=== PATIENT | female | born 1970 | race Caucasian/White ===

== ENCOUNTER 2017-12-17 11:56 | Emergency (ER) | payer MEDICARE, MEDICAID ==
[~2017-12-17] VITALS: Ht 165.1 cm; Wt 99.8 kg
[~2017-12-17 11:56] MED LIST: ABILIFY20 MG PO; AUGMENTIN 500 M1 TAB PO; BENADRYL50 MG PO; CIPRO500 MG PO; CLEOCIN150 MG PO; CLINDAMYCIN HC300 MG PO; CLINDAMYCIN300 MG PO; DIFLUCAN150 MG PO; FLAGYL500 MG PO; GABAPENTIN400 MG PO; HYDROCODONE BIT1 T11 PO; IBU800 MG PO; KEFLEX500 MG PO; LEXAPRO10 MG PO; LEXAPRO20 MG PO; MEDROL DOSEPAK4 MG PO; Motrin,Rufen800 MG PO; NAPROSYN500 MG PO; NEURONTIN400 MG PO; NKHM; NORCO 325 MG-101 TAB PO; NORCO 325 MG-51 TAB PO; PERCOCET 325 MG1 TA2 PO; PERCOCET 325 MG1 TA5 PO; PERCOCET 325 MG1 TA7 PO; PROTONIX40 MG PO; ROBAXIN500 MG PO; ULTRAM50 MG PO; VICO10300 PO; VICODIN 5/500 505 MG PO; VISTARIL50 MG PO; WELLBUTRIN SR150 MG PO; XANAX XR2 MG PO; XANAX0.25 MG; ZOFRAN ODT4 MG SL
[2017-12-17 12:00] VITALS: BP 130/79
[2017-12-17 12:17] LABS: BILIRUBIN NEGATIVE (NEGATIVE); BLOOD TRACE-INTACT (NEGATIVE); CLARITY SL CLOUDY (CLEAR); COLOR YELLOW (YELLOW); GLUCOSE NEGATIVE (NEGATIVE); KETONE NEGATIVE (NEGATIVE); LEUKO ESTERASE NEGATIVE (NEGATIVE); NITRITE NEGATIVE (NEGATIVE); PH 5.5 (5.0-9.0); SPECIFIC GRAVITY <= 1.005 (1.005-1.030); UROBILINOGEN 0.2 E.U./dl (0.2-1.0)
[2017-12-17 12:27] LABS: BACTERIA TRACE
[2017-12-17 12:30] LABS: BASO % 0.3 % (0.0-1.0); EOS # 0.1 10*3/uL (0.0-0.4); EOS % 0.7 % (1.0-4.0); HEMATOCRIT 42.2 % (37.0-47.0); HEMOGLOBIN 14.6 g/dl (12.0-16.0); LYMPH # 2.2 10*3/uL (1.3-4.4); MEAN CELL VOLUME 86.7 fl (81.0-99.0); MEAN CORPUSCULAR HGB CONC 34.6 g/dl (33.0-37.0); MEAN PLATELET VOLUME 9.5 fl (9.6-12.3); MONO # 0.6 10*3/uL (0.1-1.0); NEUT # 9.4 10*3/uL (2.3-7.9); NEUT % 75.7 % (47.0-73.0); PLATELET COUNT AUTOMATED 283 10*3/uL (130-400); RED BLOOD COUNT 4.87 10*6/uL (4.10-5.10); WHITE BLOOD COUNT 12.4 10*3/uL (4.8-10.8)
[2017-12-17 12:37] LABS: ACT PARTIAL THROMBO TIME 23.2 SECONDS (20.8-31.5)
[2017-12-17 12:44] LABS: ALBUMIN 3.7 gm/dl (3.1-4.5); ALKALINE PHOSPHATASE 82 U/L (45-117); BUN 6 mg/dl (7-24); CHLORIDE 107 mmol/L (98-107); CREATININE 0.73 mg/dL (0.55-1.02); LIPASE 185 U/L (73-393); POTASSIUM 3.7 mmol/L (3.5-5.1); SGOT/AST 10 IU/L (3-35); SGPT/ALT 17 U/L (12-78); SODIUM 137 mmol/L (136-145); TOTAL PROTEIN 7.9 gm/dL (6.4-8.2)
== END 2017-12-17 13:31 | disposition home or self-care (01) ==
LOC: ED 11:56
PROVIDERS: Emergency Medicine
DX: K62.5 Hemorrhage of anus and rectum (principal); R19.7 Diarrhea, unspecified; A04.72 Enterocolitis due to Clostridium difficile, not specified as recurrent; R10.30 Lower abdominal pain, unspecified; F17.200 Nicotine dependence, unspecified, uncomplicated; G89.29 Other chronic pain; Z98.890 Other specified postprocedural states; Z90.49 Acquired absence of other specified parts of digestive tract; Z98.51 Tubal ligation status; Z79.899 Other long term (current) drug therapy; Z88.0 Allergy status to penicillin; Z88.1 Allergy status to other antibiotic agents; Z88.8 Allergy status to other drugs, medicaments and biological substances

== ENCOUNTER 2018-03-24 01:07 | Emergency (ER) | payer MEDICARE, MEDICAID ==
[~2018-03-24] VITALS: Ht 165.1 cm; Wt 81.6 kg
[2018-03-24 01:50] LABS: BASO # 0.1 10*3/uL (0.0-0.1); BASO % 0.5 % (0.0-1.0); EOS # 0.1 10*3/uL (0.0-0.4); EOS % 0.8 % (1.0-4.0); HEMATOCRIT 49.6 % (37.0-47.0); HEMOGLOBIN 16.5 g/dl (12.0-16.0); LYMPH # 3.1 10*3/uL (1.3-4.4); LYMPH % 20.1 % (27.0-41.0); MEAN CELL VOLUME 89.4 fl (81.0-99.0); MEAN CORPUSCULAR HGB 29.7 pg (27.0-31.0); MEAN CORPUSCULAR HGB CONC 33.3 g/dl (33.0-37.0); MEAN PLATELET VOLUME 9.2 fl (9.6-12.3); MONO # 0.7 10*3/uL (0.1-1.0); MONO % 4.3 % (3.0-9.0); NEUT # 11.4 10*3/uL (2.3-7.9); NEUT % 73.6 % (47.0-73.0); PLATELET COUNT AUTOMATED 279 10*3/uL (130-400); RED BLOOD COUNT 5.55 10*6/uL (4.10-5.10); RED CELL DISTRI WIDTH 13.2 % (0-14.5); WHITE BLOOD COUNT 15.5 10*3/uL (4.8-10.8)
[2018-03-24 02:08] LABS: ALKALINE PHOSPHATASE 90 U/L (45-117); BUN 8 mg/dl (7-24); CHLORIDE 106 mmol/L (98-107); CPK 66 U/L (26-192); CREATININE 0.83 mg/dL (0.55-1.02); POTASSIUM 3.9 mmol/L (3.5-5.1); SGOT/AST 17 IU/L (3-35); SGPT/ALT 18 U/L (12-78); SODIUM 140 mmol/L (136-145); TOTAL PROTEIN 8.6 gm/dL (6.4-8.2)
[2018-03-24 02:09] LABS: ACETAMINOPHEN (TYLENOL) < 2.0 ug/ml (10-30); B-hCG (QUALITATIVE) NEGATIVE (NEGATIVE); TROPONIN I < 0.015 ng/ml (<0.045)
[2018-03-24 08:14] LABS: BILIRUBIN 1+ (NEGATIVE); BLOOD NEGATIVE (NEGATIVE); CLARITY CLEAR (CLEAR); COLOR YELLOW (YELLOW); GLUCOSE NEGATIVE (NEGATIVE); KETONE NEGATIVE (NEGATIVE); LEUKO ESTERASE NEGATIVE (NEGATIVE); NITRITE NEGATIVE (NEGATIVE); PH 5.5 (5.0-9.0); SPECIFIC GRAVITY <= 1.005 (1.005-1.030); UROBILINOGEN 0.2 E.U./dl (0.2-1.0)
[2018-03-24 08:23] LABS: URINE AMPHETAMINES < 1000 (1000ng/ml); URINE BARBITURATES < 200 (200ng/ml); URINE BENZODIAZEPINES < 200 (200ng/ml); URINE CANNABINOIDS (THC) > 50 (50ng/ml); URINE COCAINE < 300 (300ng/ml); URINE METHADONE < 300 (300ng/ml); URINE OPIATES < 300 (300ng/ml)
[2018-03-24 08:24] LABS: URINE PHENCYCLIDINE < 25 (25ng/ml); WBC 0-2 wbc/hpf (0-5)
[2018-03-24 09:16] VITALS: BP 137/90
== END 2018-03-24 10:55 | disposition left against medical advice (07) ==
LOC: ED 01:07
PROVIDERS: Emergency Medicine
DX: F32.9 Major depressive disorder, single episode, unspecified (principal); R45.851 Suicidal ideations; F31.9 Bipolar disorder, unspecified; F17.200 Nicotine dependence, unspecified, uncomplicated; Z88.0 Allergy status to penicillin; Z88.1 Allergy status to other antibiotic agents; Z79.899 Other long term (current) drug therapy

== ENCOUNTER 2018-10-02 09:53 | Inpatient (IN) | payer MEDICARE, MEDICAID ==
[~2018-10-02] VITALS: Ht 165.1 cm; Wt 98.2 kg
--- NOTE | ~2018-10-02 | EKG ---
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
--- NOTE | 2018-10-02 10:10 | NUR ---
PATIENT ASSISTED TO BATHROOM STATES THAT SHE COULDNT WALK ON HER OWN. PATIENT STATES IM IN SUCH BAD PAIN. PATIENT PLACED INTO WHEELCHAIR AND TAKEN TO BATHROOM. PATIENT TAKEN BACK TO HER EXAM ROOM UPON FINISHING. STATED TO PATIENT I WAS GOING TO PUT THE BACK OF HER BED UP TO START AND IV AND SHE IMMEADIATELY STARTED TO RAISE HER VOICE TO THIS NURSE AND STATE "WHY CANT YOU JUST LAY IT DOWN IM TRYING TO LAY DOWN BECAUSE IM IN PAIN.. STATED TO PATIENT THAT I AM GOING TO START THE IV TO POSSIBLY GIVE HER PAIN MEDICATION IF DOCTOR ORDERS IT AND SHE STATES TO THIS NURSE IN A RAISED VOICE WHAT YOUR NOT CAPABLE OF PUTTING AN IV IN ME LAYING DOWN".
[2018-10-02 10:18] LABS: BILIRUBIN NEGATIVE (NEGATIVE); BLOOD 2+ (NEGATIVE); CLARITY CLOUDY (CLEAR); COLOR YELLOW (YELLOW); GLUCOSE NEGATIVE (NEGATIVE); KETONE TRACE (NEGATIVE); LEUKO ESTERASE TRACE (NEGATIVE); NITRITE NEGATIVE (NEGATIVE); SPECIFIC GRAVITY >= 1.030 (1.005-1.030); UROBILINOGEN 0.2 E.U./dl (0.2-1.0)
[2018-10-02 10:27] LABS: BACTERIA 1+; CALCIUM OXALATE CRYSTALS 1+; EPITHELIAL CELLS 16-20
[2018-10-02 10:34] LABS: BASO # 0.1 10*3/uL (0.0-0.1); BASO % 0.3 % (0.0-1.0); EOS # 0.1 10*3/uL (0.0-0.4); EOS % 0.4 % (1.0-4.0); HEMATOCRIT 43.6 % (37.0-47.0); HEMOGLOBIN 14.9 g/dl (12.0-16.0); LYMPH # 1.4 10*3/uL (1.3-4.4); LYMPH % 9.4 % (27.0-41.0); MEAN CELL VOLUME 88.1 fl (81.0-99.0); MEAN CORPUSCULAR HGB 30.1 pg (27.0-31.0); MEAN CORPUSCULAR HGB CONC 34.2 g/dl (33.0-37.0); MEAN PLATELET VOLUME 9.3 fl (9.6-12.3); MONO # 0.3 10*3/uL (0.1-1.0); MONO % 2.2 % (3.0-9.0); NEUT # 12.9 10*3/uL (2.3-7.9); NEUT % 87.3 % (47.0-73.0); PLATELET COUNT AUTOMATED 260 10*3/uL (130-400); RED BLOOD COUNT 4.95 10*6/uL (4.10-5.10); RED CELL DISTRI WIDTH 12.5 % (0-14.5); WHITE BLOOD COUNT 14.8 10*3/uL (4.8-10.8)
[2018-10-02 10:34] LABS: URINE AMPHETAMINES < 1000 (1000ng/ml); URINE BARBITURATES < 200 (200ng/ml); URINE BENZODIAZEPINES < 200 (200ng/ml); URINE CANNABINOIDS (THC) > 50 (50ng/ml); URINE COCAINE < 300 (300ng/ml); URINE METHADONE < 300 (300ng/ml); URINE OPIATES < 300 (300ng/ml)
[2018-10-02 10:35] LABS: URINE PHENCYCLIDINE < 25 (25ng/ml)
--- NOTE | 2018-10-02 10:35 | NUR ---
PATIENT REFUSED EKG. STATED TO EKG THAT "YOU NEED TO GET OUT OF HERE AND I DONT WANT TO BE FUSSED WITH FOR NOW." PATIENT REFUSING CT SCAN WELL. STATES THAT SHE JUST WANTS PAIN MEDICATION.
--- NOTE | 2018-10-02 10:37 | NUR ---
PATIENT SCREAMING FROM ROOM "AM I BEING REFUSED TREATMENT!!".
--- NOTE | 2018-10-02 10:38 | NUR ---
PATIENT REQUESTING NURSING CONSTRUCTION CARPENTER. SCREAMING "I WILL GUTIERREZ EVERY M F IN THIS HOSPITAL!"
--- NOTE | 2018-10-02 10:41 | NUR ---
ALETHEA NURSING GANG INVESTIGATOR IS HERE AT THIS TIME TO SPEAK WITH PATIENT.
[2018-10-02 10:45] LABS: ACT PARTIAL THROMBO TIME 23.3 SECONDS (20.8-31.5)
[2018-10-02 10:49] LABS: ALBUMIN 3.4 gm/dl (3.1-4.5); ALKALINE PHOSPHATASE 73 U/L (45-117); BUN 9 mg/dl (7-24); CHLORIDE 106 mmol/L (98-107); CREATININE 0.72 mg/dL (0.55-1.02); LIPASE 117 U/L (73-393); POTASSIUM 3.4 mmol/L (3.5-5.1); SGOT/AST 9 IU/L (3-35); SGPT/ALT 12 U/L (12-78); SODIUM 139 mmol/L (136-145); TOTAL PROTEIN 7.6 gm/dL (6.4-8.2)
[2018-10-02 10:51] LABS: TROPONIN I < 0.015 ng/ml (<0.045)
--- NOTE | 2018-10-02 10:54 | NUR ---
IN THE MIDDLE OF PROPERLY IV PUSHING THE MEDICATION PATIENT STATES "WHATS TAKING SO LONG".
--- NOTE | 2018-10-02 10:54 | NUR ---
PATIENT HAS EMESIS BAG ON BED WITH HER. PATIENT LEANED OVER BED AND SPIT ON THE FLOOR.
--- NOTE | 2018-10-02 12:00 | NUR ---
PATIENT RESTING AT THIS TIME IN BED APPEARS IN NO DISTRESS.
--- NOTE | 2018-10-02 12:47 | NUR ---
PATIENT YELLING FROM ROOM AT THIS TIME "DID YOU SAY YOU WERE GONNA IGNORE ME!" NOT ONE PERSON WAS SPEAKING AT THIS TIME.
--- NOTE | 2018-10-02 13:03 | NUR ---
PT ASSISTED TO BATHROOM.
--- NOTE | 2018-10-02 13:06 | NUR ---
PATIENT IN BATHROOM AT THIS TIME.
[2018-10-02 13:35] VITALS: BP 94/40
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
--- NOTE | 2018-10-02 13:47 | NUR ---
PATIENT TAKEN TO 5TH FLOOR AT THIS TIME BY THIS NURSE.
--- NOTE | 2018-10-02 13:55 | NUR ---
Time: 1354 A 47 year old FEMALE admitted to under services of DR. ROWDY LYON,RUFUS. Pt. arrived via stretcher from ER. Chief complaint: ABDOMINAL PAIN, NAUSEA AND VOMITING. RASHI CHAVIRA
--- NOTE | 2018-10-02 14:15 | NUR ---
PT MEDICATED WITH PRN NORCO AND ZOFRAN FOR C/O BILATERAL UPPER QUAD ABDOMINAL PAIN AND NAUSEA. WILL REACCESS. PT RATES PAIN 04/19.
--- NOTE | 2018-10-02 14:19 | NUR ---
PT C/O MID AREA ABDOMINAL PAIN, RATES PAIN 10 ON PAIN SCALE 0-10. ALSO NAUSIATED. MEDICATED WITH NORCO PO AND ZOFRAN IV SEE EMAR. CALL LIGHT IN REACH.
--- NOTE | 2018-10-02 14:22 | NUR ---
DR. CASAREZ ON THE FLOOR PT REFUSED MANAGER UI. SHE STATESE SHE WILL FIX THE ORDER. SHE IS TO BE MED-SURG.
--- NOTE | 2018-10-02 15:41 | NUR ---
CALLED DR COPELAND TO LET HIM KNOW THAT THE PATIENT CLAIMS THE NORCO SHE WAS GIVEN WAS INEFFECTIVE IN TREATING HER PAIN. DR COPELAND STATES HE WILL PUT SOMETHING IN.
--- NOTE | 2018-10-02 16:08 | NUR ---
INFECTIOUS DISEASE ANSWERING SERVICE GIVEN CONSULT INFORMATION.
--- NOTE | 2018-10-02 16:10 | NUR ---
DR PRIDE CALLED BACK. STATES SHE WILL SEE THE PATIENT TODAY.
--- NOTE | 2018-10-02 16:34 | NUR ---
PATIENT RESTING COMFORTABLY IN HER BED AT THIS TIME. RESPIRATIONS EASY, NO S/S OF DISTRESS, CALL LIGHT WITHIN REACH.
--- NOTE | 2018-10-02 17:00 | NUR ---
CALLED DR COPELAND TO LET HIM KNOW THE PATIENT IS STILL COMPLAINING OF PAIN. PATIENT STATES THIS "IS NOT HER FIRST RODEO." AND HAS HAD A REOCCURANCE OF DIVERTICULITIS "ABOUT TWELVE TIMES IN HER LIFE".
--- NOTE | 2018-10-02 17:18 | NUR ---
DR OLIVA AWARE OF CONSULT. STATES HE WILL SEE THE PATIENT IN THE MORNING.
--- NOTE | 2018-10-02 17:19 | NUR ---
PATIENT IS STILL REFUSING VITAL SIGNS TO BE COMPLETED AT THIS TIME.
--- NOTE | 2018-10-02 17:34 | NUR ---
PATIENT RECEIVING PHENERGAN FOR COMPLAINTS OF NAUSEA.
--- NOTE | 2018-10-02 18:35 | NUR ---
PATIENT REFUSING TO TAKE NORCO FOR PAIN AT THIS TIME DUE TO THE FACT THAT SHE STATES IT "MAKES HER SICK AND MADE HER PAIN WORSE." I EXPLAINED THAT THE DOCTORS DO NOT HAVE ANYTHING ELSE ORDERED FOR HER FOR PAIN BESIDES TYLENOL. PATIENT STATES THAT THE DOCTORS ARE "MAKING HER SUFFER." I HAVE EXPLAINED TO THE PATIENT THAT I HAVE CALLED THE DOCTORS SEVERAL TIMES ABOUT HER PAIN AND THEY HAVE DECIDED THAT NOTHING ELSE WILL BE ORDERED AT THIS TIME. SHE STATES THAT THE PHENERGAN GIVEN FOR NAUSEA WAS INEFFECTIVE WELL, STATING SHE IS STILL "DRY HEAVING." THIS NURSE HAS NOT WITNESSED HEAVING. PATIENT STATES THAT ANY TIME SHE HAS BEEN TREATED FOR DIVERTICULITIS IN THE PAST (AT [facility]) SHE HAS RECEIVED MORPHINE AND ZOFRAN, WHICH SHE STATES HAS WORKED FOR HER. I HAVE EXPLAINED TO THE PATIENT THAT I DO NOT HAVE MORPHINE ORDERED FOR HER AND I CAN NOT GIVE HER MORPHINE AT THIS TIME. PATIENT STATES THAT MAYBE SHE "SHOULD GO SOMEWHERE ELSE." I EXPLAINED TO HER THAT IF SHE WANTS TO LEAVE, SHE DOES HAVE A RIGHT TO, BUT SHE WOULD HAVE TO SIGN OUT AGAINST MEDICAL ADVICE DUE TO HER TREATMENT NOT BEING COMPLETED. EXPLAINED TO THE PATIENT THAT SHE IS RECEIVED ANTIBIOTICS AND MEDICATIONS TO TRY AND HELP CONTROL HER CONDITION, HOWEVER SHE IS INCREASINGLY UPSET. ALSO EXPLAINED THE RISKS OF HER LEAVING AT THIS TIME. PATIENT REQUESTS THAT I CALL THE DOCTOR AND HAVE SOMEONE COME TALK TO HER. CALLED DR COPELAND. DR COPELAND NOT PRESENTLY ON SITE, WILL CALL WOOD MECHANIST DOCTORS WHEN THEY [facility].
[2018-10-02 19:34] VITALS: BP 154/80
--- NOTE | 2018-10-02 19:35 | NUR ---
DR SEN IN TO SEE THE PATIENT, EXPLAINED THAT IN ORDER TO GET SOMETHING LIKE MORPHINE PRESCRIBED, WE WOULD NEED A BLOOD PRESSURE AND ASKED IF PATIENT WOULD ALLOW ONE TO BE TAKEN. PATIENT AGREED. MANUAL BP TAKEN. SEE VITAL SIGNS.
[2018-10-03] VITALS: BP 154/91
[2018-10-03 06:32] LABS: BASO % 0.2 % (0.0-1.0); EOS # 0.1 10*3/uL (0.0-0.4); EOS % 0.3 % (1.0-4.0); HEMATOCRIT 40.3 % (37.0-47.0); HEMOGLOBIN 13.6 g/dl (12.0-16.0); LYMPH # 3.3 10*3/uL (1.3-4.4); LYMPH % 18.3 % (27.0-41.0); MEAN CORPUSCULAR HGB CONC 33.7 g/dl (33.0-37.0); MEAN PLATELET VOLUME 9.9 fl (9.6-12.3); MONO # 1.1 10*3/uL (0.1-1.0); NEUT # 13.4 10*3/uL (2.3-7.9); NEUT % 74.7 % (47.0-73.0); PLATELET COUNT AUTOMATED 260 10*3/uL (130-400); RED BLOOD COUNT 4.53 10*6/uL (4.10-5.10); RED CELL DISTRI WIDTH 12.4 % (0-14.5); WHITE BLOOD COUNT 17.9 10*3/uL (4.8-10.8)
[2018-10-03 07:08] LABS: BUN 7 mg/dl (7-24); CHLORIDE 106 mmol/L (98-107); CHOLESTEROL 140 mg/dL (<200); CREATININE 0.63 mg/dL (0.55-1.02); HDL CHOLESTEROL 21 mg/dl (40-60); LDL CHOLESTEROL 89 mg/dL (9-159); PHOSPHOROUS 2.3 mg/dL (2.5-4.9); POTASSIUM 3.4 mmol/L (3.5-5.1); SODIUM 141 mmol/L (136-145); TRIGLYCERIDES 149 mg/dl (<150); VLDL CHOLESTEROL 30 mg/dL (6-40)
[2018-10-03 07:13] LABS: THYROID STIM HORMONE (HS) 0.546 uIU/ml (0.358-4.75)
[2018-10-03 08:00] VITALS: BP 153/90
[2018-10-03] MEDS ORDERED: ESCITALOPRAM OX20 MG (11:11)
[2018-10-03] MEDS ORDERED: ABILIFY20 MG PO (11:12)
--- NOTE | 2018-10-03 11:19 | NUR ---
Ethics Instructor in to talk to patient. Patient states lives at HOME with ALONE. There are BASEMENT steps in the home. Physician: ROWDY Pharmacy: [address] Home health services: NONE Patient's level of ADLs: INDEPENDENT Patient has working utilities: YES DME: NONE Follow-up physician's appointment after d/c: WILL BE MADE BY HOSPITALIST NURSE DIRECTOR ON DISCHARGE Does patient want to access PORTAL?: NO Discharge plan PT STATES SHE LIVES AT HOME ALONE AND IS INDEPENDENT IN CARE. STATES SHE HAS NOT HAD ANY OF HER MEDS SINCE THE END OF MARCH BECAUSE SHE IS UNABLE TO AFFORD THEM. TOLD HER TO ASK MD TO PRINT SCRIPS ON DISCHARGE AND OUR PHARMACY COULD FILL THEM AND IT IS USUALLY CHEAPER. ALSO INFORMED PT NURSE GUEVARA TO INFORM MD. WILL CONTINUE TO FOLLOW.. KATHRIN HERNANDEZ
[2018-10-03 12:00] VITALS: BP 158/92
[2018-10-03 16:00] VITALS: BP 143/92
[2018-10-03 20:00] VITALS: BP 144/85
--- NOTE | 2018-10-03 22:15 | NUR ---
PATIENT MEDICATED WITH ZOFRAN FOR COMPLAINTS OF NAUSEA. WILL MONITOR FOR EFFECTIVENESS. CALL LIGHT IN REACH.
[2018-10-04] VITALS: BP 134/81
--- NOTE | 2018-10-04 05:02 | NUR ---
PATIENT NOT IN ROOM OR ON FLOOR. IV FOUND IN BATHROOM SINK. NURSING STABLE HELPER NOTIFIED AND DR. SEN NOTIFIED.
== END 2018-10-04 05:06 | disposition left against medical advice (07) | DRG 392 ==
LOC: ED 09:53 → 5E 13:19 → EDHOLD 13:19 → 5E 13:28
PROVIDERS: Emergency Medicine; Family Medicine; ADMIT Family Medicine
DX: K57.32 Diverticulitis of large intestine without perforation or abscess without bleeding (principal); K52.9 Noninfective gastroenteritis and colitis, unspecified; E87.6 Hypokalemia; R10.33 Periumbilical pain; R73.9 Hyperglycemia, unspecified; R31.1 Benign essential microscopic hematuria; R82.71 Bacteriuria; F31.9 Bipolar disorder, unspecified; F41.8 Other specified anxiety disorders; E83.39 Other disorders of phosphorus metabolism; Z53.21 Procedure and treatment not carried out due to patient leaving prior to being seen by health care provider; G89.29 Other chronic pain; F17.210 Nicotine dependence, cigarettes, uncomplicated; M48.00 Spinal stenosis, site unspecified; E66.9 Obesity, unspecified; F12.90 Cannabis use, unspecified, uncomplicated; Z71.6 Tobacco abuse counseling; Z90.49 Acquired absence of other specified parts of digestive tract; Z88.0 Allergy status to penicillin; Z88.1 Allergy status to other antibiotic agents; Z88.2 Allergy status to sulfonamides; Z98.51 Tubal ligation status; Z83.3 Family history of diabetes mellitus; Z80.0 Family history of malignant neoplasm of digestive organs; Z82.61 Family history of arthritis; Z82.49 Family history of ischemic heart disease and other diseases of the circulatory system; Z82.0 Family history of epilepsy and other diseases of the nervous system; Z79.899 Other long term (current) drug therapy; Z68.36 Body mass index [BMI] 36.0-36.9, adult

== ENCOUNTER 2018-11-12 13:11 | Inpatient (IN) | payer MEDICARE, MEDICAID ==
[~2018-11-12] VITALS: Ht 165.1 cm; Wt 96.2 kg
--- NOTE | ~2018-11-12 | EKG ---
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
[~2018-11-12 13:11] MED LIST changes: +ESCITALOPRAM OX20 MG
[2018-11-12 13:14] VITALS: BP 151/82
[2018-11-12 13:58] VITALS: BP 139/68
[2018-11-12 14:16] LABS: HEMATOCRIT 44.9 % (37.0-47.0); MEAN CELL VOLUME 88.4 fl (81.0-99.0); MEAN CORPUSCULAR HGB 29.5 pg (27.0-31.0); MEAN CORPUSCULAR HGB CONC 33.4 g/dl (33.0-37.0); MEAN PLATELET VOLUME 9.7 fl (9.6-12.3); PLATELET COUNT AUTOMATED 261 10*3/uL (130-400); RED BLOOD COUNT 5.08 10*6/uL (4.10-5.10); RED CELL DISTRI WIDTH 12.5 % (0-14.5); WHITE BLOOD COUNT 15.8 10*3/uL (4.8-10.8)
--- NOTE | 2018-11-12 14:16 | NUR ---
PT UNABLEE TO PROVIDE URINE SPECIMEN. MADE AWARE.
[2018-11-12 14:35] LABS: ATYPICAL LYMPHS 1 % (0-0); PLATELET SUFFICIENCY NORMAL (NORMAL); TOTAL CELLS COUNTED 100 #CELLS
[2018-11-12 14:38] LABS: ACT PARTIAL THROMBO TIME 23.5 SECONDS (20.8-31.5); INTERNATIONAL NORM RATIO 1.1 (2.0-3.5)
[2018-11-12 14:39] LABS: ALBUMIN 3.9 gm/dl (3.1-4.5); ALKALINE PHOSPHATASE 73 U/L (45-117); BUN 10 mg/dl (7-24); CHLORIDE 103 mmol/L (98-107); CREATININE 0.66 mg/dL (0.55-1.02); LIPASE 113 U/L (73-393); PHOSPHOROUS 3.3 mg/dL (2.5-4.9); POTASSIUM 3.2 mmol/L (3.5-5.1); SGOT/AST 10 IU/L (3-35); SGPT/ALT 18 U/L (12-78); SODIUM 138 mmol/L (136-145); TOTAL PROTEIN 8.2 gm/dL (6.4-8.2)
[2018-11-12 14:42] VITALS: BP 138/70
--- NOTE | 2018-11-12 14:42 | NUR ---
PT STATES NAUSEA IS RESOLVED.
[2018-11-12 14:46] LABS: TROPONIN I < 0.015 ng/ml (<0.045)
[2018-11-12 15:30] VITALS: BP 136/78
--- NOTE | 2018-11-12 15:40 | NUR ---
PT REMAINS UNABLE AND UNWILLING TO TRY TO PROVIDE URINE SPECIMEN.
--- NOTE | 2018-11-12 15:50 | NUR ---
Time: 1549 A 48 year old FEMALE admitted to under services of DR. ROWDY LYON,RUFUS. Pt. arrived via stretcher from ER. Chief complaint: NASUEA, VOMITTING . RAIMUNDO TALBOT
[2018-11-12 16:00] VITALS: BP 153/74
--- NOTE | 2018-11-12 16:38 | NUR ---
DR BELL HERE TO SEE PT
[2018-11-12] MEDS ORDERED: LEXAPRO20 MG PO (16:48)
[2018-11-12] MEDS ORDERED: ANUSOL HC30 GM PO (16:48)
[2018-11-12] MEDS ORDERED: ABILIFY20 MG PO (16:49)
[2018-11-12] MEDS ORDERED: NEURONTIN400 MG PO (16:50)
--- NOTE | 2018-11-12 17:45 | NUR ---
DR PEREZ IN TO SEE PT
--- NOTE | 2018-11-12 18:09 | NUR ---
PT MEDICATED WITH ZOFRAN FOR NAUSEA WILL MONITOR
--- NOTE | 2018-11-12 19:10 | NUR ---
REPORT RECIEVED FROM ADE EUBANKS. PT ASLEEP IN BED AT THIS TIME. NO S/S OF DISTRESS NOTED. WILL CONTINUE TO MONITOR.
[2018-11-12 20:00] VITALS: BP 149/73
--- NOTE | 2018-11-12 20:34 | NUR ---
24 HR CHART CHECK COMPLETE.
--- NOTE | 2018-11-12 21:04 | NUR ---
PT AMINISTERED PRN PHENERGAN FOR C/O SEVERE NAUSEA. WILL CONTINUE TO MONITOR.
--- NOTE | 2018-11-13 05:00 | NUR ---
PT REPORTS RELIEF OF NAUSEA. PRN PHENERGAN EFFECTIVE.
[2018-11-13 06:22] LABS: BASO % 0.1 % (0.0-1.0); HEMATOCRIT 43.1 % (37.0-47.0); HEMOGLOBIN 14.3 g/dl (12.0-16.0); LYMPH # 2.3 10*3/uL (1.3-4.4); LYMPH % 10.6 % (27.0-41.0); MEAN CELL VOLUME 89.2 fl (81.0-99.0); MEAN CORPUSCULAR HGB 29.6 pg (27.0-31.0); MEAN CORPUSCULAR HGB CONC 33.2 g/dl (33.0-37.0); MONO # 1.3 10*3/uL (0.1-1.0); MONO % 5.8 % (3.0-9.0); PLATELET COUNT AUTOMATED 264 10*3/uL (130-400); RED BLOOD COUNT 4.83 10*6/uL (4.10-5.10); RED CELL DISTRI WIDTH 12.6 % (0-14.5); WHITE BLOOD COUNT 21.6 10*3/uL (4.8-10.8)
[2018-11-13 06:31] LABS: BILIRUBIN NEGATIVE (NEGATIVE); BLOOD 1+ (NEGATIVE); CLARITY SL CLOUDY (CLEAR); COLOR YELLOW (YELLOW); GLUCOSE NEGATIVE (NEGATIVE); KETONE 3+ (NEGATIVE); LEUKO ESTERASE NEGATIVE (NEGATIVE); NITRITE NEGATIVE (NEGATIVE); UROBILINOGEN 0.2 E.U./dl (0.2-1.0)
[2018-11-13 06:43] LABS: ALBUMIN 3.7 gm/dl (3.1-4.5); ALKALINE PHOSPHATASE 74 U/L (45-117); BUN 9 mg/dl (7-24); CHLORIDE 103 mmol/L (98-107); CREATININE 0.66 mg/dL (0.55-1.02); POTASSIUM 3.4 mmol/L (3.5-5.1); SGOT/AST 10 IU/L (3-35); SGPT/ALT 14 U/L (12-78); SODIUM 138 mmol/L (136-145); TOTAL PROTEIN 7.6 gm/dL (6.4-8.2)
[2018-11-13 06:47] LABS: URINE AMPHETAMINES < 1000 (1000ng/ml); URINE BARBITURATES < 200 (200ng/ml); URINE BENZODIAZEPINES < 200 (200ng/ml); URINE CANNABINOIDS (THC) > 50 (50ng/ml); URINE COCAINE > 300 (300ng/ml); URINE METHADONE < 300 (300ng/ml); URINE OPIATES < 300 (300ng/ml); URINE PHENCYCLIDINE < 25 (25ng/ml)
[2018-11-13 07:00] LABS: BACTERIA 1+; RBC 51-100 rbc/hpf (0-2)
[2018-11-13 07:01] LABS: MUCOUS 2+
--- NOTE | 2018-11-13 07:50 | NUR ---
Notified by aide that pt refused vitals.
--- NOTE | 2018-11-13 08:03 | NUR ---
Medicated with zofran per prn order for nausea. Pt refused oral potassium, states she can't keep anything down and can't take a pill right now.
--- NOTE | 2018-11-13 08:59 | NUR ---
Notified Dr. Rossi Alexandra that pt refused oral potassium due to nausea. Stating she is unable to keep anything down and didn't want to take it. Reviewed potassium from today.
--- NOTE | 2018-11-13 09:00 | NUR ---
Commercial Drone Pilot in to talk to patient. Patient states lives at home with alone. There are few steps in the home. Physician: alok Pharmacy: [facility] [place] health services: none Patient's level of ADLs: INDEPENDENT Patient has working utilities: all working DME: none Follow-up physician's appointment after d/c: will be made by hospitalist nurse director upon discharge Does patient want to access PORTAL?: no Discharge plan discussed with patient, patient lives at home alone, she is independent in adls and ambulation, ptaient states she will be going home when able and denies any home needs. SABINO CHAND
[2018-11-13 12:00] VITALS: BP 149/73
--- NOTE | 2018-11-13 14:53 | NUR ---
Spoke with Dr. Bradford regarding pt. Notified that IV site was removed due to redness and pt complaint. Currently has had several attempts from 2 RN's and another nurse to try. Notified that pt had zofran earlier and it was not effective. Pt is requesting a pill for nausea at this time. Notified Dr. Bradford of all of this.
--- NOTE | 2018-11-13 15:45 | NUR ---
Spoke with Dr. William Alexandra regarding pt requesting something for pain and statements that she can't take a pill at this time. States pain is in arms from multiple IV sticks. Dr. Alexandra states that pt took marinol earlier and she can try whatever oral prn pain medication she has ordered.
--- NOTE | 2018-11-13 15:52 | NUR ---
Pt states she is having pain from multiple iv sticks. I offered pt tylenol but she states she cannot take anything po due to nausea. I explained to pt that I had spoken with the resident and they were not going to order any iv meds for pain at this time due to pt being able to take marinol po earlier. Pt states that she did take it but she ended up vomiting it later.
--- NOTE | 2018-11-13 16:00 | NUR ---
Pt called me back into her room, states she is very nauseated. States she wants something for pain, states she is miserable. I notified pt I would speak again with the Dr. I told pt that she just had zofran and it was too soon. Pt began shouting at me stating she knows she didn't get the medication because soon after her iv was red. I spoke with Dr. Rossi Alexandra again and notified him that pt states she cannot take oral meds, states she vomited marinol earlier and that she is still nauseated. He notified Dr. Bradford.
--- NOTE | 2018-11-13 16:50 | NUR ---
New order for scopolamine noted. Pt is currently sleeping. Did not waken at this time to apply.
--- NOTE | 2018-11-13 17:10 | NUR ---
Pt requesting nausea medication. I gave pt patch as ordered and explained new orders. Pt had refused vitals earlier for PA, she still refusing to have vitals. States her arms hurt from IV.
--- NOTE | 2018-11-13 18:10 | NUR ---
Pt currently sleeping. No signs of pain or nausea noted.
--- NOTE | 2018-11-13 19:30 | NUR ---
PATIENT IN BED DRY HEAVING, CRYING. STATES SHE IS VERY NAUSEA BUT HAS NOT PUKED. MEDICATED WITH IV ZOFRAN AT THIS TIME. WILL CONTINUE TO MONITOR.
[2018-11-13 20:00] VITALS: BP 173/83
--- NOTE | 2018-11-13 20:15 | NUR ---
PATIENT C/O ABDOMINAL PAIN. 06/19, BODY ACHES, HOT&COLD CHILLS. STATES SHE CAN NOT TAKE ANYTHING BY MOUTH BECAUSE SHE WILL VOMIT. MANUAL BLOOD PRESSURE 168/80. NOTIFIED DR. SR PATIENT IS REQUESTING SOMETHING FOR PAIN AND OF PATIENTS HIGH BLOOD PRESSURE. STATED SHE WOULD REVIEW IT. NO NEW ORDERS RECEIVED. WILL CONTINUE TO MONITOR.
[2018-11-13 20:22] VITALS: BP 168/80
--- NOTE | 2018-11-13 20:51 | NUR ---
PATIENT MEDICATED WITH TORADOL FOR ABDOMEN PAIN. RATES 06/19. PATIENT STILL DRY HEAVING AND C/O NAUSEA. ZOFRAN UNEFFECTIVE. WILL CONTINUE TO MONITOR.
--- NOTE | 2018-11-13 23:00 | NUR ---
PATIENT SLEEPING. NO SIGNS OF DISTRESS. TORADOL EFFECTIVE. WILL CONTINUE TO MONITOR.
[2018-11-14] VITALS: BP 168/86
--- NOTE | 2018-11-14 00:48 | NUR ---
PATIENT C/O NAUSEA. MEDICTED WITH ZOFRAN. PATIENT STATES HER ABDOMINAL PAIN IS NOW A /10, IT WAS 10/10. TOARDOL EFFECTIVE.
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
--- NOTE | 2018-11-14 08:49 | NUR ---
PT COMPLAINING OF ALL OVER BODY ACHES RATED AT AN 8. PRN TYLENOL GIVEN AT THIS TIME. WILL MONITOR FOR EFFECTIVENESS.
--- NOTE | 2018-11-14 09:00 | NUR ---
case management visits with patient, patient states she will be going home when able and denies any home needs
[2018-11-14 12:00] VITALS: BP 151/95
[2018-11-14 16:00] VITALS: BP 160/84
[2018-11-14 20:00] VITALS: BP 169/88
--- NOTE | 2018-11-14 23:45 | NUR ---
PATIENT REFUSING VITALS AT THIS TIME.
[2018-11-15 07:00] LABS: BASO % 0.2 % (0.0-1.0); EOS % 0.2 % (1.0-4.0); HEMATOCRIT 42.9 % (37.0-47.0); HEMOGLOBIN 15.1 g/dl (12.0-16.0); LYMPH # 2.1 10*3/uL (1.3-4.4); LYMPH % 12.6 % (27.0-41.0); MEAN CELL VOLUME 85.3 fl (81.0-99.0); MEAN CORPUSCULAR HGB CONC 35.2 g/dl (33.0-37.0); MEAN PLATELET VOLUME 9.5 fl (9.6-12.3); MONO # 1.1 10*3/uL (0.1-1.0); MONO % 6.4 % (3.0-9.0); NEUT # 13.5 10*3/uL (2.3-7.9); NEUT % 80.2 % (47.0-73.0); PLATELET COUNT AUTOMATED 264 10*3/uL (130-400); RED BLOOD COUNT 5.03 10*6/uL (4.10-5.10); WHITE BLOOD COUNT 16.8 10*3/uL (4.8-10.8)
[2018-11-15 07:27] LABS: BUN 9 mg/dl (7-24); CHLORIDE 97 mmol/L (98-107); CREATININE 0.43 mg/dL (0.55-1.02); POTASSIUM 3.2 mmol/L (3.5-5.1); SODIUM 131 mmol/L (136-145)
[2018-11-15 08:00] VITALS: BP 144/94
--- NOTE | 2018-11-15 09:00 | NUR ---
case management visits with patient, patient states she hopes to be going home today, denies any home needs
--- NOTE | 2018-11-15 10:00 | NUR ---
PT SEEN AT THIS TIME. PT STATES SHE FEELS MUCH BETTER TODAY. PT DOES NOT HAVE ANY COMPLAINTS AT THIS TIME. PT TOOK MORNING MEDS AND ORDERED FOOD. NO COMPLAINTS OF NAUSEA. BED IN LOWEST LOCKED POSITION. CALL LIGHT WITHIN REACH.
[2018-11-15 12:00] VITALS: BP 169/90
[2018-11-15] MEDS ORDERED: ZOFRAN4 MG PO (13:06)
--- NOTE | 2018-11-15 14:01 | NUR ---
Discharge instructions reviewed with patient/family. Patient receptive and verbalizes understanding. Follow-up care arranged. Written instructions given to patient/family. HÉCTOR LANTIGUA
== END 2018-11-15 14:15 | disposition home or self-care (01) | DRG 392 ==
LOC: ED 13:11 → 4E 14:57 → EDHOLD 14:57 → 4E 15:21
PROVIDERS: Family Medicine; Internal Medicine; ADMIT Family Medicine
DX: K57.32 Diverticulitis of large intestine without perforation or abscess without bleeding (principal); K52.9 Noninfective gastroenteritis and colitis, unspecified; E87.6 Hypokalemia; F41.8 Other specified anxiety disorders; G89.4 Chronic pain syndrome; E66.9 Obesity, unspecified; E86.0 Dehydration; M48.00 Spinal stenosis, site unspecified; R73.9 Hyperglycemia, unspecified; F12.10 Cannabis abuse, uncomplicated; F14.10 Cocaine abuse, uncomplicated; R31.29 Other microscopic hematuria; F31.9 Bipolar disorder, unspecified; F17.210 Nicotine dependence, cigarettes, uncomplicated; Z90.49 Acquired absence of other specified parts of digestive tract; Z71.6 Tobacco abuse counseling; Z88.0 Allergy status to penicillin; Z88.1 Allergy status to other antibiotic agents; Z88.2 Allergy status to sulfonamides; Z88.8 Allergy status to other drugs, medicaments and biological substances; Z98.51 Tubal ligation status; Z83.3 Family history of diabetes mellitus; Z80.0 Family history of malignant neoplasm of digestive organs; Z79.899 Other long term (current) drug therapy; Z87.81 Personal history of (healed) traumatic fracture; Z71.51 Drug abuse counseling and surveillance of drug abuser; Z68.35 Body mass index [BMI] 35.0-35.9, adult

== ENCOUNTER 2019-04-24 19:21 | Emergency (ER) | payer MEDICARE, MEDICAID ==
[~2019-04-24] VITALS: Ht 165.1 cm; Wt 93.9 kg
--- NOTE | ~2019-04-24 | EKG ---
[place], [place] ELECTROCARDIOGRAM REPORT NAME: ELENA GÓMEZ UNIT #: [id number] ROOM: DOCTOR: EPIPHANY DRAFT REPORT BIRTHDATE: [birth year] [facility] Test Date: 2019-04-24 Test Time: 20:05:34 Pat Name: ELENA GÓMEZ Department: Room: Gender: F Evidence Technician: Gisella Costa : 1970 Requested By: KYLER MORALES PA-C Order Number: [id number] Reading MD: Kwaku Willams MD Measurements Intervals [place] Rate: 76 P: 35 IA: 142 QRS: 35 QRSD: 88 T: 69 QT: 373 QTc: 420 Interpretive Statements Sinus rhythm Nonspecific T abnormalities, lateral leads Electronically Signed On 04-25-2019 11:14:09 PDT by Kwaku Willams MD CM:EKGRPT:ELECTROCARDIOGRAM REPORT 04 [id number] KYLER MORALES PA-C EPIPHTATA DRAFT REPORT KYLER MORALES PA-C
[~2019-04-24 19:21] MED LIST changes: +ANUSOL HC30 GM PO; +ZOFRAN4 MG PO
[2019-04-24 20:30] VITALS: BP 114/73
[2019-04-24 20:45] LABS: BASO # 0.1 10*3/uL (0.0-0.1); BASO % 0.4 % (0.0-1.0); EOS # 0.2 10*3/uL (0.0-0.4); EOS % 1.4 % (1.0-4.0); HEMATOCRIT 43.4 % (37.0-47.0); HEMOGLOBIN 14.4 g/dl (12.0-16.0); LYMPH # 3.2 10*3/uL (1.3-4.4); LYMPH % 22.9 % (27.0-41.0); MEAN CELL VOLUME 90.6 fl (81.0-99.0); MEAN CORPUSCULAR HGB 30.1 pg (27.0-31.0); MEAN CORPUSCULAR HGB CONC 33.2 g/dl (33.0-37.0); MEAN PLATELET VOLUME 9.7 fl (9.6-12.3); MONO # 0.8 10*3/uL (0.1-1.0); MONO % 5.3 % (3.0-9.0); NEUT # 9.8 10*3/uL (2.3-7.9); NEUT % 69.6 % (47.0-73.0); PLATELET COUNT AUTOMATED 230 10*3/uL (130-400); RED BLOOD COUNT 4.79 10*6/uL (4.10-5.10); RED CELL DISTRI WIDTH 12.4 % (0-14.5)
[2019-04-24 21:02] LABS: INTERNATIONAL NORM RATIO 0.9 (2.0-3.5)
[2019-04-24 21:03] LABS: ALBUMIN 3.8 gm/dl (3.1-4.5); ALKALINE PHOSPHATASE 86 U/L (45-117); BUN 19 mg/dl (7-24); CHLORIDE 107 mmol/L (98-107); CREATININE 0.86 mg/dL (0.55-1.02); POTASSIUM 3.4 mmol/L (3.5-5.1); SGOT/AST 10 IU/L (3-35); SGPT/ALT 14 U/L (12-78); SODIUM 143 mmol/L (136-145); TOTAL PROTEIN 7.6 gm/dL (6.4-8.2)
[2019-04-24 21:21] LABS: TROPONIN I < 0.015 ng/ml (<0.045)
== END 2019-04-24 21:40 | disposition left against medical advice (07) ==
LOC: ED 19:21
PROVIDERS: Physician Assistant
DX: M79.601 Pain in right arm (principal); M54.2 Cervicalgia; R51 Headache; R55 Syncope and collapse; F12.90 Cannabis use, unspecified, uncomplicated; F17.200 Nicotine dependence, unspecified, uncomplicated; Z98.890 Other specified postprocedural states; Z98.51 Tubal ligation status; Z90.49 Acquired absence of other specified parts of digestive tract; Z79.899 Other long term (current) drug therapy; Z88.0 Allergy status to penicillin; Z88.1 Allergy status to other antibiotic agents; Z88.8 Allergy status to other drugs, medicaments and biological substances

== ENCOUNTER 2019-07-24 09:50 | Emergency (ER) | payer MEDICARE, MEDICAID ==
[~2019-07-24] VITALS: Ht 165.1 cm; Wt 96.6 kg
[2019-07-24 09:56] VITALS: BP 145/86
[2019-07-24 11:04] LABS: BASO % 0.3 % (0.0-1.0); EOS # 0.1 10*3/uL (0.0-0.4); EOS % 1.1 % (1.0-4.0); HEMATOCRIT 44.1 % (37.0-47.0); HEMOGLOBIN 14.9 g/dl (12.0-16.0); LYMPH # 2.6 10*3/uL (1.3-4.4); LYMPH % 24.4 % (27.0-41.0); MEAN CELL VOLUME 89.5 fl (81.0-99.0); MEAN CORPUSCULAR HGB 30.2 pg (27.0-31.0); MEAN CORPUSCULAR HGB CONC 33.8 g/dl (33.0-37.0); MEAN PLATELET VOLUME 9.8 fl (9.6-12.3); MONO # 0.5 10*3/uL (0.1-1.0); MONO % 5.2 % (3.0-9.0); NEUT # 7.2 10*3/uL (2.3-7.9); NEUT % 68.7 % (47.0-73.0); PLATELET COUNT AUTOMATED 245 10*3/uL (130-400); RED BLOOD COUNT 4.93 10*6/uL (4.10-5.10); RED CELL DISTRI WIDTH 12.5 % (0-14.5); WHITE BLOOD COUNT 10.4 10*3/uL (4.8-10.8)
[2019-07-24 11:16] LABS: BILIRUBIN NEGATIVE (NEGATIVE); BLOOD TRACE-INTACT (NEGATIVE); COLOR YELLOW (YELLOW); GLUCOSE NEGATIVE (NEGATIVE); KETONE NEGATIVE (NEGATIVE); LEUKO ESTERASE NEGATIVE (NEGATIVE); NITRITE NEGATIVE (NEGATIVE); PH 5.5 (5.0-9.0); SPECIFIC GRAVITY >= 1.030 (1.005-1.030); UROBILINOGEN 0.2 E.U./dl (0.2-1.0)
[2019-07-24 11:17] LABS: ALBUMIN 3.8 gm/dl (3.1-4.5); ALKALINE PHOSPHATASE 74 U/L (45-117); BUN 14 mg/dl (7-24); CHLORIDE 109 mmol/L (98-107); POTASSIUM 3.8 mmol/L (3.5-5.1); SGOT/AST 15 IU/L (3-35); SGPT/ALT 19 U/L (12-78); SODIUM 140 mmol/L (136-145); TOTAL PROTEIN 7.7 gm/dL (6.4-8.2)
[2019-07-24 11:38] LABS: WBC 0-2 wbc/hpf (0-5)
[2019-07-24 11:39] LABS: BACTERIA 1+; CLARITY SL CLOUDY (CLEAR); MUCOUS 2+
[2019-07-24] MEDS ORDERED: ROBAXIN-750750 MG PO (13:06)
[2019-07-24] MEDS ORDERED: PREDNISONE20 M1 PO (13:06)
== END 2019-07-24 13:18 | disposition home or self-care (01) ==
LOC: ED 09:50
PROVIDERS: Physician Assistant
DX: M54.16 Radiculopathy, lumbar region (principal); G43.909 Migraine, unspecified, not intractable, without status migrainosus; F17.200 Nicotine dependence, unspecified, uncomplicated; Z88.0 Allergy status to penicillin; Z88.1 Allergy status to other antibiotic agents; Z88.2 Allergy status to sulfonamides; Z88.8 Allergy status to other drugs, medicaments and biological substances; Z79.899 Other long term (current) drug therapy; Z90.49 Acquired absence of other specified parts of digestive tract

== ENCOUNTER 2019-08-04 12:54 | Emergency (ER) | payer MEDICARE, MEDICAID ==
[~2019-08-04] VITALS: Ht 165.1 cm; Wt 95.3 kg
[~2019-08-04 12:54] MED LIST changes: +PREDNISONE20 M1 PO; +ROBAXIN-750750 MG PO
[2019-08-04 12:55] VITALS: BP 135/86
[2019-08-04] MEDS ORDERED: PREDNISONE50 MG PO (15:01)
[2019-08-04] MEDS ORDERED: Motrin,Rufen800 MG PO (15:02)
[2019-08-04] MEDS ORDERED: NEURONTIN300 MG PO (15:02)
== END 2019-08-04 15:04 | disposition home or self-care (01) ==
LOC: ED 12:54
DX: M54.40 Lumbago with sciatica, unspecified side (principal); F17.200 Nicotine dependence, unspecified, uncomplicated; G43.909 Migraine, unspecified, not intractable, without status migrainosus; G89.29 Other chronic pain; Z88.0 Allergy status to penicillin; Z88.1 Allergy status to other antibiotic agents; Z88.2 Allergy status to sulfonamides; Z88.8 Allergy status to other drugs, medicaments and biological substances; Z79.899 Other long term (current) drug therapy

== ENCOUNTER → 2019-08-26 | Outpatient (CLI) | payer MEDICARE, MEDICAID ==
[~2019-08-26] MED LIST changes: +NEURONTIN300 MG PO; +PREDNISONE50 MG PO
== END | disposition home or self-care (01) ==
LOC: CT 10:00
DX: M50.30 Other cervical disc degeneration, unspecified cervical region (principal); M85.88 Other specified disorders of bone density and structure, other site; R41.3 Other amnesia

== ENCOUNTER → 2019-08-28 | Outpatient (CLI) | payer MEDICARE, MEDICAID | END | disposition home or self-care (01) | LOC: MRI 08-26 10:11 | DX: M47.812 Spondylosis without myelopathy or radiculopathy, cervical region (principal); M48.02 Spinal stenosis, cervical region; M47.814 Spondylosis without myelopathy or radiculopathy, thoracic region; M25.78 Osteophyte, vertebrae; R26.81 Unsteadiness on feet ==

== ENCOUNTER 2019-10-24 18:14 | Emergency (ER) | payer MEDICARE, MEDICAID ==
[2019-10-24 18:21] VITALS: BP 146/79
[2019-10-24 19:23] LABS: BASO # 0.1 10*3/uL (0.0-0.1); BASO % 0.3 % (0.0-1.0); EOS # 0.1 10*3/uL (0.0-0.4); EOS % 0.8 % (1.0-4.0); HEMATOCRIT 39.7 % (37.0-47.0); HEMOGLOBIN 13.2 g/dl (12.0-16.0); LYMPH # 4.1 10*3/uL (1.3-4.4); LYMPH % 24.1 % (27.0-41.0); MEAN CELL VOLUME 91.7 fl (81.0-99.0); MEAN CORPUSCULAR HGB 30.5 pg (27.0-31.0); MEAN CORPUSCULAR HGB CONC 33.2 g/dl (33.0-37.0); MEAN PLATELET VOLUME 9.8 fl (9.6-12.3); MONO # 1.3 10*3/uL (0.1-1.0); MONO % 7.5 % (3.0-9.0); NEUT # 11.3 10*3/uL (2.3-7.9); NEUT % 66.8 % (47.0-73.0); PLATELET COUNT AUTOMATED 227 10*3/uL (130-400); RED BLOOD COUNT 4.33 10*6/uL (4.10-5.10); RED CELL DISTRI WIDTH 12.6 % (0-14.5)
[2019-10-24 19:38] LABS: ALBUMIN 3.6 gm/dl (3.1-4.5); ALKALINE PHOSPHATASE 98 U/L (45-117); BUN 12 mg/dl (7-24); CHLORIDE 113 mmol/L (98-107); CREATININE 0.91 mg/dL (0.55-1.02); SGOT/AST 9 IU/L (3-35); SGPT/ALT 17 U/L (12-78); SODIUM 143 mmol/L (136-145); TOTAL PROTEIN 7.1 gm/dL (6.4-8.2)
[2019-10-24] MEDS ORDERED: CLINDAMYCIN HC300 MG PO (20:37)
[2019-10-24] MEDS ORDERED: Motrin,Rufen800 MG PO (20:37)
[2019-10-24] MEDS ORDERED: DIFLUCAN150 MG PO (20:37)
== END 2019-10-24 21:09 | disposition home or self-care (01) ==
LOC: ED 18:14
PROVIDERS: Physician Assistant
DX: N61.1 Abscess of the breast and nipple (principal); G43.909 Migraine, unspecified, not intractable, without status migrainosus; Z88.0 Allergy status to penicillin; Z88.1 Allergy status to other antibiotic agents; Z88.2 Allergy status to sulfonamides; Z88.8 Allergy status to other drugs, medicaments and biological substances; Z79.899 Other long term (current) drug therapy; Z90.49 Acquired absence of other specified parts of digestive tract; Z87.891 Personal history of nicotine dependence

== ENCOUNTER 2020-02-25 12:44 | Emergency (ER) | payer MEDICARE, MEDICAID ==
[~2020-02-25] VITALS: Ht 165.1 cm; Wt 95.3 kg
[2020-02-25 12:46] VITALS: BP 117/96
[2020-02-25] MEDS ORDERED: NEURONTIN400 MG PO (12:59)
[2020-02-25] MEDS ORDERED: NAPROSYN500 MG PO (15:06)
== END 2020-02-25 15:51 | disposition home or self-care (01) ==
LOC: ED 12:44
DX: M76.62 Achilles tendinitis, left leg (principal); G43.909 Migraine, unspecified, not intractable, without status migrainosus; Z88.0 Allergy status to penicillin; Z88.1 Allergy status to other antibiotic agents; Z88.8 Allergy status to other drugs, medicaments and biological substances; Z87.891 Personal history of nicotine dependence

== ENCOUNTER → 2020-03-10 | Outpatient (CLI) | payer MEDICARE, MEDICAID | END | disposition home or self-care (01) | LOC: MRI 13:43 | DX: M67.472 Ganglion, left ankle and foot (principal); M65.872 Other synovitis and tenosynovitis, left ankle and foot; M76.62 Achilles tendinitis, left leg; M77.52 Other enthesopathy of left foot and ankle; R60.9 Edema, unspecified ==

== ENCOUNTER → 2020-03-30 | Outpatient (CLI) | payer MEDICARE, MEDICAID | END | disposition home or self-care (01) | LOC: RAD 10:39 | DX: M17.12 Unilateral primary osteoarthritis, left knee (principal); M76.9 Unspecified enthesopathy, lower limb, excluding foot; R07.89 Other chest pain ==

== ENCOUNTER 2020-04-05 14:45 | Inpatient (IN) | payer MEDICARE, MEDICAID ==
[~2020-04-05] VITALS: Ht 170.1 cm; Wt 96.2 kg
[2020-04-05 14:57] VITALS: BP 121/83
[2020-04-05 16:18] LABS: COLOR YELLOW (YELLOW)
[2020-04-05 16:19] LABS: BILIRUBIN 1+ (NEGATIVE); BLOOD 1+ (NEGATIVE); CLARITY CLOUDY (CLEAR); GLUCOSE NEGATIVE (NEGATIVE); KETONE NEGATIVE (NEGATIVE); LEUKO ESTERASE TRACE (NEGATIVE); NITRITE NEGATIVE (NEGATIVE); UROBILINOGEN 0.2 E.U./dl (0.2-1.0)
[2020-04-05 16:30] LABS: BASO % 0.3 % (0.0-1.0); EOS # 0.1 10*3/uL (0.0-0.4); EOS % 0.8 % (1.0-4.0); HEMATOCRIT 41.6 % (37.0-47.0); LYMPH % 22.7 % (27.0-41.0); MEAN CELL VOLUME 87.4 fl (81.0-99.0); MEAN CORPUSCULAR HGB 29.4 pg (27.0-31.0); MEAN CORPUSCULAR HGB CONC 33.7 g/dl (33.0-37.0); MEAN PLATELET VOLUME 9.4 fl (9.6-12.3); MONO # 0.7 10*3/uL (0.1-1.0); MONO % 5.6 % (3.0-9.0); NEUT # 9.3 10*3/uL (2.3-7.9); NEUT % 70.2 % (47.0-73.0); PLATELET COUNT AUTOMATED 242 10*3/uL (130-400); RED BLOOD COUNT 4.76 10*6/uL (4.10-5.10); RED CELL DISTRI WIDTH 12.7 % (0-14.5); WHITE BLOOD COUNT 13.3 10*3/uL (4.8-10.8)
[2020-04-05 16:39] LABS: BACTERIA 2+; EPITHELIAL CELLS 16-20
[2020-04-05 16:40] LABS: URINE AMPHETAMINES < 1000 (1000ng/ml); URINE BARBITURATES < 200 (200ng/ml); URINE BENZODIAZEPINES > 200 (200ng/ml); URINE CANNABINOIDS (THC) > 50 (50ng/ml); URINE COCAINE < 300 (300ng/ml); URINE METHADONE < 300 (300ng/ml); URINE OPIATES < 300 (300ng/ml)
[2020-04-05 16:41] LABS: URINE PHENCYCLIDINE < 25 (25ng/ml)
[2020-04-05 16:44] LABS: ALBUMIN 3.8 gm/dl (3.1-4.5); ALKALINE PHOSPHATASE 78 U/L (45-117); BUN 11 mg/dl (7-24); CHLORIDE 110 mmol/L (98-107); CREATININE 0.75 mg/dL (0.55-1.02); POTASSIUM 3.6 mmol/L (3.5-5.1); SGOT/AST 12 IU/L (3-35); SGPT/ALT 17 U/L (12-78); SODIUM 141 mmol/L (136-145); TOTAL PROTEIN 7.6 gm/dL (6.4-8.2)
[2020-04-05 16:47] LABS: ETHYL ALCOHOL < 3.0 mg/dl (<3)
[2020-04-05 20:30] VITALS: BP 124/76
[2020-04-06 03:20] VITALS: BP 142/72
[2020-04-06 03:36] VITALS: BP 142/72
[2020-04-06 07:16] LABS: CHOLESTEROL 165 mg/dL (<200); HDL CHOLESTEROL 19 mg/dl (40-60); LDL CHOLESTEROL 86 mg/dL (9-159); TRIGLYCERIDES 300 mg/dl (<150); VLDL CHOLESTEROL 60 mg/dL (6-40)
[2020-04-06 08:00] VITALS: BP 117/65
[2020-04-06 20:00] VITALS: BP 118/82
[2020-04-07 07:44] VITALS: BP 131/82
[2020-04-07] MEDS ORDERED: ARIPIPRAZOLE10 MG PO (09:31)
[2020-04-07] MEDS ORDERED: DULOXETINE HCL30 MG PO (09:31)
== END 2020-04-07 11:19 | disposition home or self-care (01) | DRG 885 ==
LOC: ED 14:45 → 3N 04-06 01:49
PROVIDERS: Emergency Medicine; ADMIT Psychiatry & Neurology Psychiatry
DX: F33.2 Major depressive disorder, recurrent severe without psychotic features (principal); R45.851 Suicidal ideations; F17.210 Nicotine dependence, cigarettes, uncomplicated; G89.29 Other chronic pain; M19.90 Unspecified osteoarthritis, unspecified site; E66.9 Obesity, unspecified; F41.8 Other specified anxiety disorders; K57.90 Diverticulosis of intestine, part unspecified, without perforation or abscess without bleeding; F43.9 Reaction to severe stress, unspecified; G62.9 Polyneuropathy, unspecified; M48.02 Spinal stenosis, cervical region; D72.829 Elevated white blood cell count, unspecified; F60.9 Personality disorder, unspecified; F34.1 Dysthymic disorder; Z88.0 Allergy status to penicillin; Z88.1 Allergy status to other antibiotic agents; Z98.51 Tubal ligation status; Z90.49 Acquired absence of other specified parts of digestive tract; Z80.0 Family history of malignant neoplasm of digestive organs; Z83.3 Family history of diabetes mellitus; Z82.61 Family history of arthritis; Z82.0 Family history of epilepsy and other diseases of the nervous system; Z82.49 Family history of ischemic heart disease and other diseases of the circulatory system; Z88.2 Allergy status to sulfonamides; Z68.35 Body mass index [BMI] 35.0-35.9, adult; Z03.818 Encounter for observation for suspected exposure to other biological agents ruled out

== ENCOUNTER → 2020-06-11 | Outpatient (CLI) | payer OTHER ==
[~2020-06-11] MED LIST changes: +ARIPIPRAZOLE10 MG PO; +CLEOCIN HCL300 MG PO; +DULOXETINE HCL30 MG PO; +XARELTO10 MG PO
== END | disposition home or self-care (01) ==
LOC: COVID19 02:25
PROVIDERS: ATTEND Podiatrist
DX: Z01.812 Encounter for preprocedural laboratory examination (principal); Z20.828 Contact with and (suspected) exposure to other viral communicable diseases

== ENCOUNTER → 2020-06-11 | Outpatient (CLI) | payer OTHER ==
[2020-06-11 12:43] LABS: BASO # 0.1 10*3/uL (0.0-0.1); BASO % 0.5 % (0.0-1.0); EOS # 0.3 10*3/uL (0.0-0.4); EOS % 2.5 % (1.0-4.0); HEMATOCRIT 40.4 % (37.0-47.0); LYMPH % 29.6 % (27.0-41.0); MEAN CELL VOLUME 89.2 fl (81.0-99.0); MEAN CORPUSCULAR HGB 30.2 pg (27.0-31.0); MEAN CORPUSCULAR HGB CONC 33.9 g/dl (33.0-37.0); MEAN PLATELET VOLUME 9.3 fl (9.6-12.3); MONO # 0.7 10*3/uL (0.1-1.0); MONO % 6.8 % (3.0-9.0); NEUT # 6.1 10*3/uL (2.3-7.9); NEUT % 60.1 % (47.0-73.0); PLATELET COUNT AUTOMATED 235 10*3/uL (130-400); RED BLOOD COUNT 4.53 10*6/uL (4.10-5.10); RED CELL DISTRI WIDTH 12.5 % (0-14.5); WHITE BLOOD COUNT 10.2 10*3/uL (4.8-10.8)
[2020-06-11 13:02] LABS: BUN 13 mg/dl (7-24); CHLORIDE 109 mmol/L (98-107); CREATININE 0.68 mg/dL (0.55-1.02); SODIUM 140 mmol/L (136-145)
== END | disposition home or self-care (01) ==
LOC: LAB 12:23
PROVIDERS: Podiatrist; ATTEND Nurse Practitioner Family
DX: Z01.818 Encounter for other preprocedural examination (principal); M21.6X9 Other acquired deformities of unspecified foot

== ENCOUNTER → 2020-06-16 | Day surgery (SDC) | payer OTHER ==
[2020-06-11 14:39] VITALS: BP 104/68
[2020-06-16] VITALS (9 sets, daily range): BP systolic 121–146; BP diastolic 63–100
[~2020-06-16] VITALS: Ht 167.6 cm; Wt 104.3 kg
== END | disposition home or self-care (01) ==
LOC: SDC 06-11 12:30
PROVIDERS: ATTEND Podiatrist
DX: S86.012A Strain of left Achilles tendon, initial encounter (principal); M21.6X2 Other acquired deformities of left foot; F41.9 Anxiety disorder, unspecified; F32.9 Major depressive disorder, single episode, unspecified; I13.0 Hypertensive heart and chronic kidney disease with heart failure and stage 1 through stage 4 chronic kidney disease, or unspecified chronic kidney disease; N18.9 Chronic kidney disease, unspecified; I50.9 Heart failure, unspecified; I25.10 Atherosclerotic heart disease of native coronary artery without angina pectoris; Z98.890 Other specified postprocedural states; Z79.899 Other long term (current) drug therapy; Z88.0 Allergy status to penicillin; Z88.8 Allergy status to other drugs, medicaments and biological substances; X58.XXXA Exposure to other specified factors, initial encounter; Y93.89 Activity, other specified; Y92.89 Other specified places as the place of occurrence of the external cause; Y99.8 Other external cause status

== ENCOUNTER 2020-11-16 15:49 | Emergency (ER) | payer OTHER ==
[~2020-11-16] VITALS: Ht 172.7 cm; Wt 99.8 kg
[2020-11-16 16:46] LABS: MEAN CELL VOLUME 89.2 fl (81.0-99.0); MEAN CORPUSCULAR HGB 29.5 pg (27.0-31.0); MEAN CORPUSCULAR HGB CONC 33.1 g/dl (33.0-37.0); MEAN PLATELET VOLUME 9.2 fl (9.6-12.3); PLATELET COUNT AUTOMATED 302 10*3/uL (130-400); RED BLOOD COUNT 4.37 10*6/uL (4.10-5.10); RED CELL DISTRI WIDTH 12.6 % (0-14.5)
[2020-11-16 16:56] LABS: ACT PARTIAL THROMBO TIME 24.4 SECONDS (20.0-32.1)
[2020-11-16 17:01] LABS: ALBUMIN 3.6 gm/dl (3.1-4.5); ALKALINE PHOSPHATASE 88 U/L (45-117); BUN 13 mg/dl (7-24); CHLORIDE 109 mmol/L (98-107); CREATININE 0.63 mg/dL (0.55-1.02); LIPASE 113 U/L (73-393); POTASSIUM 3.4 mmol/L (3.5-5.1); SGOT/AST 10 IU/L (3-35); SGPT/ALT 23 U/L (12-78); SODIUM 141 mmol/L (136-145); TOTAL PROTEIN 7.4 gm/dL (6.4-8.2)
[2020-11-16 17:02] LABS: TROPONIN I < 0.015 ng/ml (<0.045)
[2020-11-16 17:11] LABS: ATYPICAL LYMPHS 3 % (0-0); PLATELET SUFFICIENCY NORMAL (NORMAL); TOTAL CELLS COUNTED 100 #CELLS
[2020-11-16 18:53] VITALS: BP 124/71
[2020-11-16] MEDS ORDERED: CLINDAMYCIN HC300 MG PO (19:42)
== END 2020-11-16 20:03 | disposition home or self-care (01) ==
LOC: ED 15:49
PROVIDERS: Emergency Medicine
DX: G43.909 Migraine, unspecified, not intractable, without status migrainosus (principal); I10 Essential (primary) hypertension; D72.829 Elevated white blood cell count, unspecified; R56.9 Unspecified convulsions; F41.9 Anxiety disorder, unspecified; F32.9 Major depressive disorder, single episode, unspecified; F17.200 Nicotine dependence, unspecified, uncomplicated; Z88.0 Allergy status to penicillin; Z88.8 Allergy status to other drugs, medicaments and biological substances; Z88.2 Allergy status to sulfonamides; Z79.899 Other long term (current) drug therapy; Z98.51 Tubal ligation status; Z98.890 Other specified postprocedural states; Z90.49 Acquired absence of other specified parts of digestive tract

== ENCOUNTER → 2021-01-10 | Outpatient (CLI) | payer OTHER ==
[2021-01-10 10:20] LABS: BASO % 0.4 % (0.0-1.0); EOS # 0.2 10*3/uL (0.0-0.4); EOS % 1.6 % (1.0-4.0); HEMATOCRIT 41.4 % (37.0-47.0); LYMPH # 2.6 10*3/uL (1.3-4.4); LYMPH % 27.6 % (27.0-41.0); MEAN CELL VOLUME 88.3 fl (81.0-99.0); MEAN CORPUSCULAR HGB 29.2 pg (27.0-31.0); MEAN CORPUSCULAR HGB CONC 33.1 g/dl (33.0-37.0); MEAN PLATELET VOLUME 10.1 fl (9.6-12.3); MONO # 0.5 10*3/uL (0.1-1.0); MONO % 5.6 % (3.0-9.0); NEUT % 64.4 % (47.0-73.0); PLATELET COUNT AUTOMATED 263 10*3/uL (130-400); RED BLOOD COUNT 4.69 10*6/uL (4.10-5.10); WHITE BLOOD COUNT 9.3 10*3/uL (4.8-10.8)
[2021-01-10 10:35] LABS: BUN 19 mg/dl (7-24); CHLORIDE 105 mmol/L (98-107); POTASSIUM 3.9 mmol/L (3.5-5.1); SODIUM 139 mmol/L (136-145)
[2021-01-10 10:44] LABS: ALKALINE PHOSPHATASE 82 U/L (45-117); CHOLESTEROL 202 mg/dL (<200); CREATININE 0.74 mg/dL (0.55-1.02); HDL CHOLESTEROL 21 mg/dl (40-60); LDL CHOLESTEROL 129 mg/dL (9-159); SGOT/AST 12 IU/L (3-35); SGPT/ALT 23 U/L (12-78); TRIGLYCERIDES 262 mg/dl (<150); VLDL CHOLESTEROL 52 mg/dL (6-40)
== END | disposition home or self-care (01) ==
LOC: LAB 09:35
PROVIDERS: ATTEND Nurse Practitioner Family
DX: Z13.228 Encounter for screening for other metabolic disorders (principal); I10 Essential (primary) hypertension; Z79.899 Other long term (current) drug therapy

== ENCOUNTER → 2021-10-07 | Outpatient (CLI) | payer OTHER ==
[~2021-10-07] MED LIST changes: +PERCOCET 5-3251 EACH PO
== END | disposition home or self-care (01) ==
LOC: MEDIPORT 10:26
PROVIDERS: ATTEND Nurse Practitioner Family
DX: Z45.2 Encounter for adjustment and management of vascular access device (principal); C53.9 Malignant neoplasm of cervix uteri, unspecified

== ENCOUNTER 2021-10-11 13:46 | Emergency (ER) | payer OTHER ==
[~2021-10-11] VITALS: Ht 167.6 cm; Wt 99.8 kg
[~2021-10-11 13:46] MED LIST changes: -PERCOCET 5-3251 EACH PO
[2021-10-11 13:59] VITALS: BP 130/81
[2021-10-11 14:54] LABS: BASO % 0.2 % (0.0-1.0); EOS % 0.2 % (1.0-4.0); HEMATOCRIT 36.7 % (37.0-47.0); LYMPH # 0.5 10*3/uL (1.3-4.4); LYMPH % 9.3 % (27.0-41.0); MEAN CELL VOLUME 86.6 fl (81.0-99.0); MEAN CORPUSCULAR HGB 29.2 pg (27.0-31.0); MEAN CORPUSCULAR HGB CONC 33.8 g/dl (33.0-37.0); MEAN PLATELET VOLUME 7.9 fl (9.6-12.3); MONO # 0.3 10*3/uL (0.1-1.0); MONO % 5.8 % (3.0-9.0); NEUT # 4.1 10*3/uL (2.3-7.9); NEUT % 83.9 % (47.0-73.0); PLATELET COUNT AUTOMATED 306 10*3/uL (130-400); RED BLOOD COUNT 4.24 10*6/uL (4.10-5.10); RED CELL DISTRI WIDTH 15.3 % (0-14.5); WHITE BLOOD COUNT 4.9 10*3/uL (4.8-10.8)
[2021-10-11 15:09] LABS: ALBUMIN 3.5 gm/dl (3.1-4.5); ALKALINE PHOSPHATASE 71 U/L (45-117); BUN 12 mg/dl (7-24); CHLORIDE 102 mmol/L (98-107); CREATININE 0.71 mg/dL (0.55-1.02); LIPASE 96 U/L (73-393); POTASSIUM 3.7 mmol/L (3.5-5.1); SGOT/AST 15 IU/L (3-35); SGPT/ALT 24 U/L (12-78); SODIUM 137 mmol/L (136-145); TOTAL PROTEIN 8.3 gm/dL (6.4-8.2)
[2021-10-11] MEDS ORDERED: PERCOCET 5-3251 EACH PO (18:46)
[2021-10-11] MEDS ORDERED: ZOFRAN4 MG PO (18:46)
== END 2021-10-11 18:56 | disposition home or self-care (01) ==
LOC: ED 13:46
PROVIDERS: Physician Assistant
DX: K57.32 Diverticulitis of large intestine without perforation or abscess without bleeding (principal); Z88.0 Allergy status to penicillin; Z88.1 Allergy status to other antibiotic agents; Z88.8 Allergy status to other drugs, medicaments and biological substances; Z79.899 Other long term (current) drug therapy; Z98.51 Tubal ligation status; Z98.890 Other specified postprocedural states; Z90.49 Acquired absence of other specified parts of digestive tract; Z87.891 Personal history of nicotine dependence

== ENCOUNTER → 2021-12-16 | Outpatient (CLI) | payer OTHER ==
[~2021-12-16] MED LIST changes: +PERCOCET 5-3251 EACH PO
== END | disposition home or self-care (01) ==
LOC: CT 12:53
PROVIDERS: ATTEND Obstetrics & Gynecology
DX: C53.9 Malignant neoplasm of cervix uteri, unspecified (principal); K57.30 Diverticulosis of large intestine without perforation or abscess without bleeding

== ENCOUNTER 2022-02-18 16:20 | Emergency (ER) | payer OTHER ==
[2022-02-18 16:21] VITALS: BP 124/81
[2022-02-18 17:33] LABS: BASO % 0.2 % (0.0-1.0); EOS % 0.1 % (1.0-4.0); HEMATOCRIT 41.6 % (37.0-47.0); LYMPH # 1.7 10*3/uL (1.3-4.4); LYMPH % 14.6 % (27.0-41.0); MEAN CELL VOLUME 83.5 fl (81.0-99.0); MEAN CORPUSCULAR HGB 28.7 pg (27.0-31.0); MEAN CORPUSCULAR HGB CONC 34.4 g/dl (33.0-37.0); MEAN PLATELET VOLUME 8.8 fl (9.6-12.3); MONO # 0.9 10*3/uL (0.1-1.0); MONO % 7.9 % (3.0-9.0); NEUT # 8.7 10*3/uL (2.3-7.9); NEUT % 76.8 % (47.0-73.0); PLATELET COUNT AUTOMATED 278 10*3/uL (130-400); RED BLOOD COUNT 4.98 10*6/uL (4.10-5.10); RED CELL DISTRI WIDTH 12.8 % (0-14.5); WHITE BLOOD COUNT 11.3 10*3/uL (4.8-10.8)
[2022-02-18 18:05] LABS: ALKALINE PHOSPHATASE 75 U/L (45-117); BUN 19 mg/dl (7-24); CHLORIDE 102 mmol/L (98-107); CREATININE 0.69 mg/dL (0.55-1.02); POTASSIUM 3.7 mmol/L (3.5-5.1); SGOT/AST 15 IU/L (3-35); SGPT/ALT 23 U/L (12-78); SODIUM 138 mmol/L (136-145); TOTAL PROTEIN 7.5 gm/dL (6.4-8.2)
[2022-02-18] MEDS ORDERED: ASPIRIN ADULT L81 M2 PO (19:20)
[2022-02-18] MEDS ORDERED: DOCUSATE SOD100 MG PO (19:20)
[2022-02-18] MEDS ORDERED: DRONABINOL10 MG PO (19:20)
[2022-02-18] MEDS ORDERED: PEG3350238 GM PO (19:20)
[2022-02-18] MEDS ORDERED: METHADONE HYDROC5 MG PO (19:21)
[2022-02-18] MEDS ORDERED: GERI-KOT8.6 MG PO (19:22)
[2022-02-18] MEDS ORDERED: LISINOPRIL5 MG PO (19:23)
[2022-02-18] MEDS ORDERED: ROSUVASTATIN CAL5 MG PO (19:23)
[2022-02-18] MEDS ORDERED: HYDROMORPHONE HC2 MG PO (19:23)
== END 2022-02-18 21:30 | disposition home or self-care (01) ==
LOC: ED 16:20
PROVIDERS: Internal Medicine
DX: R11.10 Vomiting, unspecified (principal)

== ENCOUNTER 2023-02-15 10:30 | Emergency (ER) | payer MEDICARE, OTHER ==
[~2023-02-15] VITALS: Ht 167.6 cm; Wt 81.6 kg
[~2023-02-15 10:30] MED LIST changes: +ASPIRIN ADULT L81 M2 PO; +DOCUSATE SOD100 MG PO; +DRONABINOL10 MG PO; +GERI-KOT8.6 MG PO; +HYDROMORPHONE HC2 MG PO; +LISINOPRIL5 MG PO; +METHADONE HYDROC5 MG PO; +PEG3350238 GM PO; +ROSUVASTATIN CAL5 MG PO
[2023-02-15 10:43] VITALS: BP 137/89
[2023-02-15 11:45] LABS: BASO % 0.1 % (0.0-1.0); EOS % 0.1 % (1.0-4.0); HEMATOCRIT 43.1 % (37.0-47.0); LYMPH # 1.3 10*3/uL (1.3-4.4); LYMPH % 9.1 % (27.0-41.0); MEAN CELL VOLUME 87.4 fl (81.0-99.0); MEAN CORPUSCULAR HGB CONC 34.3 g/dl (33.0-37.0); MEAN PLATELET VOLUME 8.7 fl (9.6-12.3); MONO # 0.9 10*3/uL (0.1-1.0); MONO % 5.9 % (3.0-9.0); NEUT # 12.3 10*3/uL (2.3-7.9); NEUT % 84.5 % (47.0-73.0); PLATELET COUNT AUTOMATED 269 10*3/uL (130-400); RED BLOOD COUNT 4.93 10*6/uL (4.10-5.10); RED CELL DISTRI WIDTH 12.5 % (0-14.5); WHITE BLOOD COUNT 14.5 10*3/uL (4.8-10.8)
[2023-02-15 12:07] LABS: ALKALINE PHOSPHATASE 78 U/L (46-116); BUN 14 mg/dl (9-23); CHLORIDE 104 mmol/L (98-107); LIPASE 40 U/L (12-53); POTASSIUM 3.5 mmol/L (3.4-5.1)
[2023-02-15 12:13] LABS: SGPT/ALT < 7 U/L (10-49)
[2023-02-15 14:41] LABS: BILIRUBIN Negative (Negative); BLOOD 1+ (Negative); CLARITY Clear (Clear); COLOR Yellow (Yellow); GLUCOSE Negative (Negative); KETONE 1+ (Negative); LEUKO ESTERASE 2+ (Negative); NITRITE Negative (Negative)
[2023-02-15 15:05] LABS: BACTERIA 2+; MUCOUS 1+; WBC 21-30 wbc/hpf (0-5)
== END 2023-02-15 15:45 | disposition home or self-care (01) ==
LOC: ED 10:30
PROVIDERS: Nurse Practitioner Family
DX: N39.0 Urinary tract infection, site not specified (principal); K31.84 Gastroparesis; G43.909 Migraine, unspecified, not intractable, without status migrainosus; F41.9 Anxiety disorder, unspecified; F31.9 Bipolar disorder, unspecified; E87.6 Hypokalemia; Z88.0 Allergy status to penicillin; Z88.1 Allergy status to other antibiotic agents; Z88.8 Allergy status to other drugs, medicaments and biological substances; Z88.2 Allergy status to sulfonamides; Z90.49 Acquired absence of other specified parts of digestive tract; Z98.51 Tubal ligation status; Z98.890 Other specified postprocedural states; Z87.891 Personal history of nicotine dependence; F14.10 Cocaine abuse, uncomplicated; F12.10 Cannabis abuse, uncomplicated

== ENCOUNTER → 2023-04-16 | Outpatient (CLI) | payer MEDICARE, OTHER ==
[~2023-04-16] MED LIST changes: +DELZICOL400 M2 PO; +FLUCONAZOLE100 MG PO; +NEURONTIN600 MG PO; +[UNRECOGNIZED DRUG - OTHER] PO
[2023-04-16 09:38] LABS: BILIRUBIN Negative (Negative); BLOOD Negative (Negative); CLARITY Clear (Clear); COLOR Yellow (Yellow); GLUCOSE Negative (Negative); KETONE Negative (Negative); LEUKO ESTERASE 1+ (Negative); NITRITE Negative (Negative); SPECIFIC GRAVITY <= 1.005 (1.001-1.030); UROBILINOGEN 0.2 E.U./dl (0.0-1.0)
[2023-04-16 09:39] LABS: BASO % 0.3 % (0.0-1.0); EOS # 0.1 10*3/uL (0.0-0.4); EOS % 1.1 % (1.0-4.0); HEMATOCRIT 41.2 % (37.0-47.0); LYMPH # 1.1 10*3/uL (1.3-4.4); LYMPH % 18.3 % (27.0-41.0); MEAN CELL VOLUME 87.7 fl (81.0-99.0); MEAN CORPUSCULAR HGB 29.4 pg (27.0-31.0); MEAN CORPUSCULAR HGB CONC 33.5 g/dl (33.0-37.0); MEAN PLATELET VOLUME 8.9 fl (9.6-12.3); MONO # 0.3 10*3/uL (0.1-1.0); MONO % 5.5 % (3.0-9.0); NEUT # 4.6 10*3/uL (2.3-7.9); NEUT % 74.6 % (47.0-73.0); PLATELET COUNT AUTOMATED 224 10*3/uL (130-400); RED CELL DISTRI WIDTH 12.4 % (0-14.5); RETICULOCYTE % 1.51 % (0.50-2.50); WHITE BLOOD COUNT 6.1 10*3/uL (4.8-10.8)
[2023-04-16 10:05] LABS: EPITHELIAL CELLS 0-2; RBC 0-2 rbc/hpf (0-2)
[2023-04-16 10:09] LABS: ALKALINE PHOSPHATASE 79 U/L (46-116); BUN 10 mg/dl (9-23); CHLORIDE 107 mmol/L (98-107); CHOLESTEROL 186 mg/dL (<200); GAMMA GLUTAMYL TRANSPEPTIDASE 13 U/L (0-73); LDL CHOLESTEROL 134 mg/dL (9-159); POTASSIUM 4.1 mmol/L (3.4-5.1); T3 UPTAKE 21.4 % (22.4-36.7); THYROXINE (T4) TOTAL 8.7 ug/dl (4.5-10.9); TOTAL PROTEIN 7.3 gm/dL (6.0-8.0); TRIGLYCERIDES 79 mg/dl (<150); URIC ACID 5.2 mg/dL (3.1-7.8)
[2023-04-16 10:21] LABS: SGPT/ALT < 7 U/L (10-49)
[2023-04-16 10:29] LABS: VITAMIN D, 25-HYDROXY 55.4 ng/mL (30-100)
[2023-04-16 11:15] LABS: BASOPHILS 2 % (0-1); PLATELET SUFFICIENCY NORMAL (NORMAL); TOTAL CELLS COUNTED 100 #CELLS
[2023-04-17 13:07] LABS: ANTI-DSDNA ANTIBODIES <1 IU/mL (0-9)
[2023-04-17 15:07] LABS: A/G RATIO 1.3 (0.7-1.7); ALBUMIN 3.9 g/dL (2.9-4.4); ALPHA-1-GLOBULIN 0.2 g/dL (0.0-0.4); ALPHA-2-GLOBULIN 0.8 g/dL (0.4-1.0); GAMMA GLOBULIN 1.1 g/dL (0.4-1.8); GLOBULIN, TOTAL 3.1 g/dL (2.2-3.9); M-SPIKE Not Observed g/dL (Not Observed)
== END | disposition home or self-care (01) ==
LOC: LAB 09:03
PROVIDERS: ATTEND Family Medicine
DX: E78.5 Hyperlipidemia, unspecified (principal); E55.9 Vitamin D deficiency, unspecified; R79.89 Other specified abnormal findings of blood chemistry; R53.83 Other fatigue; R74.8 Abnormal levels of other serum enzymes

== ENCOUNTER 2023-11-22 11:37 | Emergency (ER) | payer MEDICARE, OTHER ==
[~2023-11-22] VITALS: Ht 167.6 cm; Wt 81.6 kg
[2023-11-22] MEDS ORDERED: SODIUM CHLORIDE 0.9% 1,000 ML IV ONE (11:55)
[2023-11-22] MEDS ORDERED: MORPHINE Sulfate 2 MG/ML SYR IV ONE ×3 (11:55→15:30)
[2023-11-22] MEDS ORDERED: Ondansetron Hydrochloride 4 MG/2 ML VIAL IV ONE ×2 (11:55→13:40)
[2023-11-22] MEDS ORDERED: IOHEXOL 300 MG/ML 100 ML VIAL IV ONE (12:00)
[2023-11-22 12:27] LABS: BASO % 0.3 % (0.0-1.0); EOS # 0.1 10*3/uL (0.0-0.4); EOS % 0.9 % (1.0-4.0); HEMATOCRIT 39.8 % (37.0-47.0); LYMPH % 10.8 % (27.0-41.0); MEAN CELL VOLUME 87.3 fl (81.0-99.0); MEAN CORPUSCULAR HGB 29.2 pg (27.0-31.0); MEAN CORPUSCULAR HGB CONC 33.4 g/dl (33.0-37.0); MEAN PLATELET VOLUME 8.9 fl (9.6-12.3); MONO # 0.7 10*3/uL (0.1-1.0); MONO % 7.5 % (3.0-9.0); NEUT # 7.3 10*3/uL (2.3-7.9); PLATELET COUNT AUTOMATED 231 10*3/uL (130-400); RED BLOOD COUNT 4.56 10*6/uL (4.10-5.10); RED CELL DISTRI WIDTH 12.6 % (0-14.5); WHITE BLOOD COUNT 9.2 10*3/uL (4.8-10.8)
[2023-11-22 13:08] LABS: BUN 10 mg/dl (9-23); CHLORIDE 103 mmol/L (98-107); LIPASE 33 U/L (12-53); POTASSIUM 3.6 mmol/L (3.4-5.1); SGPT/ALT 10 U/L (5-49)
[2023-11-22 13:45] VITALS: BP 104/57
[2023-11-22] MEDS ORDERED: ONDANSETRON4 MG SL (15:32)
[2023-11-22] MEDS ORDERED: DELZICOL400 M2 PO (15:32)
[2023-11-22] MEDS ORDERED: HYDROCODONE-AC1 EAC1 PO (15:32)
[2023-11-22 15:43] LABS: BILIRUBIN Negative (Negative); BLOOD Trace-Lysed (Negative); CLARITY Clear (Clear); COLOR Yellow (Yellow); GLUCOSE Negative (Negative); KETONE 1+ (Negative); LEUKO ESTERASE Negative (Negative); NITRITE Negative (Negative); PH 5.5 (4.5-8.0); SPECIFIC GRAVITY >= 1.030 (1.001-1.030); UROBILINOGEN 0.2 E.U./dl (0.0-1.0)
[2023-11-22 15:50] LABS: WBC 0-2 wbc/hpf (0-5)
== END 2023-11-22 16:10 | disposition home or self-care (01) ==
LOC: ED 11:37
PROVIDERS: Nurse Practitioner Family
DX: K51.90 Ulcerative colitis, unspecified, without complications (principal); R11.2 Nausea with vomiting, unspecified; R19.7 Diarrhea, unspecified; G43.909 Migraine, unspecified, not intractable, without status migrainosus; F41.9 Anxiety disorder, unspecified; F31.9 Bipolar disorder, unspecified; E87.6 Hypokalemia; F12.90 Cannabis use, unspecified, uncomplicated; F17.210 Nicotine dependence, cigarettes, uncomplicated; Z88.0 Allergy status to penicillin; Z88.1 Allergy status to other antibiotic agents; Z88.2 Allergy status to sulfonamides; Z88.8 Allergy status to other drugs, medicaments and biological substances; Z90.710 Acquired absence of both cervix and uterus; Z90.49 Acquired absence of other specified parts of digestive tract; Z98.51 Tubal ligation status; Z98.890 Other specified postprocedural states

== ENCOUNTER 2024-04-11 11:13 | Emergency (ER) | payer MEDICARE, OTHER ==
[~2024-04-11] VITALS: Ht 167.6 cm; Wt 86.2 kg
[~2024-04-11 11:13] MED LIST changes: +HYDROCODONE-AC1 EAC1 PO; +ONDANSETRON4 MG SL
[2024-04-11] MEDS ORDERED: diphenhydrAMINE hydrochloride 50 MG/ML VIAL IM ONE (11:20)
[2024-04-11] MEDS ORDERED: LORazepam 2 MG/ML VIAL IM ONE (11:20)
[2024-04-11] MEDS ORDERED: Haloperidol Lactate 5 MG/ML AMP IM ONE (11:20)
[2024-04-11] MEDS ORDERED: PRISTIQ50 MG PO (11:57)
[2024-04-11] MEDS ORDERED: MESALAMINE DR400 MG PO (11:58)
[2024-04-11] MEDS ORDERED: PANTOPRAZOLE SO20 MG PO (11:59)
[2024-04-11] MEDS ORDERED: Ketamine Hydrochloride 500 MG/10 ML VIAL IM ONE (13:00)
[2024-04-11 14:13] LABS: HEMATOCRIT 41.8 % (37.0-47.0); MEAN CELL VOLUME 88.2 fl (81.0-99.0); MEAN PLATELET VOLUME 9.1 fl (9.6-12.3); PLATELET COUNT AUTOMATED 239 10*3/uL (130-400); RED BLOOD COUNT 4.74 10*6/uL (4.10-5.10); RED CELL DISTRI WIDTH 12.5 % (0-14.5); WHITE BLOOD COUNT 16.9 10*3/uL (4.8-10.8)
[2024-04-11 14:20] LABS: MANUAL DIFF REFLEX YES
[2024-04-11 14:37] LABS: PLATELET SUFFICIENCY NORMAL (NORMAL); TOTAL CELLS COUNTED 100 #CELLS
[2024-04-11 14:38] LABS: BURR CELLS FEW
[2024-04-11 14:45] LABS: POTASSIUM 4.6 mmol/L (3.4-5.1)
[2024-04-11 18:23] VITALS: BP 140/74
[2024-04-11 18:25] LABS: BILIRUBIN Negative (Negative); BLOOD Trace-Lysed (Negative); CLARITY Cloudy (Clear); COLOR Yellow (Yellow); GLUCOSE Negative (Negative); KETONE 2+ (Negative); LEUKO ESTERASE Trace (Negative); NITRITE Negative (Negative); PH 5.5 (4.5-8.0); SPECIFIC GRAVITY 1.025 (1.001-1.030)
[2024-04-11 18:33] LABS: URINE AMPHETAMINES Negative (1000ng/ml); URINE BARBITURATES Negative (200ng/ml); URINE BENZODIAZEPINES Positive (200ng/ml); URINE CANNABINOIDS (THC) Positive (50ng/ml); URINE COCAINE Negative (300ng/ml); URINE METHADONE Negative (300ng/ml); URINE OPIATES Negative (300ng/ml); URINE PHENCYCLIDINE Negative (25ng/ml)
[2024-04-11 18:52] LABS: BACTERIA 1+; MUCOUS 2+
== END 2024-04-11 22:29 | disposition home or self-care (01) ==
LOC: ED 11:13
PROVIDERS: Emergency Medicine
DX: F31.9 Bipolar disorder, unspecified (principal); G43.909 Migraine, unspecified, not intractable, without status migrainosus; F41.9 Anxiety disorder, unspecified; F17.210 Nicotine dependence, cigarettes, uncomplicated; F14.10 Cocaine abuse, uncomplicated; F12.10 Cannabis abuse, uncomplicated; Z88.0 Allergy status to penicillin; Z88.1 Allergy status to other antibiotic agents; Z88.2 Allergy status to sulfonamides; Z88.8 Allergy status to other drugs, medicaments and biological substances; Z90.710 Acquired absence of both cervix and uterus; Z90.49 Acquired absence of other specified parts of digestive tract; Z98.51 Tubal ligation status; Z98.890 Other specified postprocedural states